=== PATIENT | female | born 2000 | race Caucasian/White ===

== ENCOUNTER 2018-12-15 04:15 | Inpatient (IN) | payer OTHER ==
[~2018-12-15] VITALS: Ht 157.5 cm; Wt 57.0 kg
[2018-12-15] MEDS ORDERED: SOD CHLORIDE 0.9% 500 ML IV STA (05:00)
--- NOTE | 2018-12-15 05:47 | ERD ---
ER Documentation Chief Complaint Chief Complaint 'seizure' as per SO @0300,refused RA,on Methadone tx for heroine HPI This is a 18-year-old female with a seizure in bed and her significant other. She had 30 seconds of tonic. No tongue biting no incontinence. Patient has apparently been binging on benzodiazepines in the form of 2 mg Xanax bars 5/day over the past month. She did not take any today. She feels a little tremulous. She denies any other current issues. ROS All systems reviewed and are negative except as per history of present illness. Allergies Allergies: Coded Allergies: No Known Allergy (Unverified , 12/15/18) PMhx/Soc Medical and Surgical Hx: pt denies Surgical Hx History of Surgery: No Anesthesia Reaction: No Hx Neurological Disorder: No Hx Respiratory Disorders: No Hx Cardiac Disorders: No Hx Psychiatric Problems: Yes (SUBSTANCE ABUSE) Hx Miscellaneous Medical Probl: No Hx Alcohol Use: No Hx Substance Use: Yes (HEROIN, XANAX, OXYCONTIN) Hx Tobacco Use: Yes Smoking Status: Current every day smoker Physical Exam Vitals Vital Signs Date Temp Pulse Resp B/P (MAP) Pulse Ox O2 O2 Flow FiO2 Time Delivery Rate 12/15/18 98.8 73 12 96/65 (75) 98 Room Air 04:50 12/15/18 98.7 74 20 99/52 (68) 99 04:22 Physical Exam Const: No acute distress Head: Atraumatic Eyes: Normal Conjunctiva ENT: Normal External Ears, Nose and Mouth. Neck: Full range of motion. No meningismus. Resp: Clear to auscultation bilaterally Cardio: Regular rate and rhythm, no murmurs Abd: Soft, non tender, non distended. Normal bowel sounds Skin: No petechiae or rashes Back: No midline or flank tenderness Ext: No cyanosis, or edema Neur: Awake and alert Psych: Normal Mood and Affect Result Diagram: 12/15/18 0526 Results 24 hrs Laboratory Tests Test 12/15/18 05:26 12/15/18 05:38 White Blood Count 8.1 10^3/ul Red Blood Count 5.11 10^6/ul Hemoglobin 14.8 g/dl Hematocrit 45.9 % Mean Corpuscular Volume 89.8 fl Mean Corpuscular Hemoglobin 29.0 pg Mean Corpuscular Hemoglobin Concent 32.2 g/dl Red Cell Distribution Width 12.8 % Platelet Count 265 10^3/UL Mean Platelet Volume 9.9 fl Immature Granulocytes % 0.200 % Neutrophils % 65.8 % Lymphocytes % 26.9 % Monocytes % 5.6 % Eosinophils % 1.0 % Basophils % 0.5 % Nucleated Red Blood Cells % 0.0 /100WBC Immature Granulocytes # 0.020 10^3/ul Neutrophils # 5.3 10^3/ul Lymphocytes # 2.2 10^3/ul Monocytes # 0.5 10^3/ul Eosinophils # 0.1 10^3/ul Basophils # 0.0 10^3/ul Nucleated Red Blood Cells # 0.0 10^3/ul POC Beta HCG, Qualitative NEGATIVE Current Medications Medications Dose Sig/[place] Start Time Status Last (Trade) Ordered Route PRN Stop Time Admin Dose Reason Admin Sodium 500 ml @ Q1H STAT 12/15/18 12/15/18 Chloride 500 mls/hr IV 05:00 05:37 12/15/18 05:59 Procedures/MDM EKG: Rate/Rhythm: [Normal Sinus Rhythm] QRS, ST, T-waves: [No changes consistent w/ acute ischemia] Impression: [No evidence of ischemia or arrhythmia] Medical decision making: Is a 18-year-old female new onset seizure disorder likely secondary to benzodiazepine withdrawal. Patient will be admitted to hospitalist to telemetric setting for further evaluation and management Departure Diagnosis: Primary Impression: Seizure disorder Condition: Serious JOHNNY ROWLAND Dec 15, 2018 05:47
[2018-12-15] MEDS ORDERED: METH10TA2 PO (08:19)
[2018-12-15] MEDS ORDERED: ACETAMINOPHEN 325 MG TAB PO PRN (08:30)
[2018-12-15] MEDS ORDERED: ONDANSETRON 4 MG INJ IV PRN (08:30)
[2018-12-15] MEDS ORDERED: NACL 0.9% 3 ML SYG IV SCH (08:30)
[2018-12-15] MEDS ORDERED: LORAZEPAM 2 MG INJ IV PRN ×2 (08:30)
[2018-12-15] MEDS ORDERED: ALBUTEROL/IPRATROPIUM (NEB) 3 ML AMP HHN PRN (08:30)
--- NOTE | 2018-12-15 09:09 | HP ---
Date/Time of Note Date/Time of Note DATE: 12/15/18 TIME: 09:02 Assessment/Plan VTE Prophylaxis SCD applied (from Nsg): Yes Pharmacological prophylaxis: NA/contraindicated Pharm contraindication: low risk/ambulating Lines/Catheters IV Catheter Type (from Nrsg): Peripheral IV Assessment/Plan Assessment/Plan 18-year-old female with history of heroin X 2 years, currently on methadone and also taking Xanax for anxiety presents after having a tonic-clonic type of seizure lasting 2 minutes. Seizure most likely related to medication induced (methadone and Xanax) VS withdrawal PLAN Admit to telemetry unit Will image her brain As needed Ativan for seizure for now EEG Consider neurology consult Also consider in-house pain specialist. Result Diagram: 12/15/1852512/15/18525 Results 24hrs Laboratory Tests Test 12/15/18 05:26 12/15/18 05:38 White Blood Count 8.1 Red Blood Count 5.11 Hemoglobin 14.8 Hematocrit 45.9 Mean Corpuscular Volume 89.8 Mean Corpuscular Hemoglobin 29.0 Mean Corpuscular Hemoglobin Concent 32.2 Red Cell Distribution Width 12.8 Platelet Count 265 Mean Platelet Volume 9.9 Immature Granulocytes % 0.200 Neutrophils % 65.8 Lymphocytes % 26.9 Monocytes % 5.6 Eosinophils % 1.0 Basophils % 0.5 Nucleated Red Blood Cells % 0.0 Immature Granulocytes # 0.020 Neutrophils # 5.3 Lymphocytes # 2.2 Monocytes # 0.5 Eosinophils # 0.1 Basophils # 0.0 Nucleated Red Blood Cells # 0.0 Urine Color YELLOW Urine Clarity CLOUDY A Urine pH 6.0 Urine Specific [place] 1.017 Urine Ketones NEGATIVE Urine Nitrite NEGATIVE Urine Bilirubin NEGATIVE Urine Urobilinogen NEGATIVE Urine Leukocyte Esterase TRACE A Urine Microscopic RBC 2 Urine Microscopic WBC 28 H Urine Squamous Epithelial Cells MODERATE Urine Bacteria FEW A Urine Mucus FEW A Urine Hemoglobin NEGATIVE Urine Glucose NEGATIVE Urine Total Protein NEGATIVE Sodium Level 142 Potassium Level 4.1 Chloride Level 103 Carbon Dioxide Level 32 H Anion Gap 7 Blood Urea Nitrogen 9 Creatinine 0.68 Est Glomerular Filtrat Rate mL/min > 60 Glucose Level 102 Calcium Level 9.8 Troponin I < 0.012 Urine Opiates Screen Negative Urine Barbiturates Negative Urine Amphetamines Screen Negative Urine Benzodiazepines Screen Negative Urine Cocaine Screen Negative Urine Cannabinoids Positive Ethyl Alcohol Level < 10.0 H POC Beta HCG, Qualitative NEGATIVE HPI/ROS Admit Date/Time Admit Date/Time Hx of Present Illness This is a 18-year-old female with history of heroin abuse X 2 years, now on methadone presents the ER after having had a seizure. Patient is accompanied by her boyfriend who also provided history. Boyfriend stated that, patient all of a sudden started rolling her eyes. Initially her body was somehow rigid, but later was having tonic-clonic type of seizure. It lasted about 2 minutes. After the seizure stopped, patient was confused even when EMS arrived. Denied a history of seizure. Patient has been on methadone for about a month. She has also been taking Xanax multiple times a day to help her with anxiety. She also smokes marijuana. Patient thinks that the combination of methadone and the Xanax was responsible for her seizure. PMH/Family/Social Past Medical History Medical History: other (See HPI) Medications Current Medications IV Flush (NS 3 ml) 3 ml PER PROTOCOL IV ; Start 12/15/18 at 08:30 Lorazepam (Ativan) 1 mg Q6H PRN IV .ANXIETY; Start 12/15/18 at 08:30 Ondansetron HCl (Zofran Inj) 4 mg Q6H PRN IV NAUSEA/VOMITING; Start 12/15/18 at 08:30 Acetaminophen (Tylenol Tab) 650 mg Q6H PRN PO .PAIN 1-3 OR TEMP; Start 12/15/18 at 08:30 Albuterol/ Ipratropium (Duoneb) 3 ml Q2H RESP THERAPY PRN HHN SHORTNESS OF BREATH; Start 12/15/18 at 08:30 Lorazepam (Ativan) 2 mg Q10M PRN IV SEIZURE; Start 12/15/18 at 08:30 Coded Allergies: No Known Allergy (Unverified , 12/15/18) Past Surgical History Past Surgical Hx: other (See HPI) Family History Significant Family History: no pertinent family hx Social History Alcohol Use: none Smoking Status: Current every day smoker Drug Use: none Exam/Review of Systems Vital Signs Vitals Vital Signs Date Temp Pulse Resp B/P (MAP) Pulse Ox O2 O2 Flow FiO2 Time Delivery Rate 12/15/18 72 14 99/59 (72) 98 Room Air 07:59 12/15/18 98.8 04:50 Exam Constitutional: alert, oriented, well developed Head: normocephalic, atraumatic Eyes: EOMI, PERRL Respiratory: clear to auscultation, normal air movement Cardiovascular: regular rate and rhythm, nl pulses Gastrointestinal: soft, non-tender Extremities: normal pulses JOHNNY GLEASON MD Dec 15, 2018 09:09
[2018-12-15] MEDS ORDERED: IOHEXOL 300MG/ML 150 ML BTL ONE (11:16)
[2018-12-15] MEDS ORDERED: SOD CHLORIDE 0.9% 100 ML ONE (11:16)
--- NOTE | 2018-12-15 12:39 | CONS ---
Assessment/Plan Assessment/Plan Hospital Course A: 18 yo with hx of heroin and xanax abuse who presents for evaluation for seizures, her reported first of life... for which neurology is consulted. The clinical picture raises concern for benzodiazepine withdrawal. Epilepsy is additionally considered. HCT is unremarkable. P: Await MRI brain with and without contrast for further characterization Await EEG Add Mg, Phos AED theraqpy not presently indicated Ativan IV PRN prolonged seizure > 5 min Will follow clinically Consultation Date/Type/Reason Admit Date/Time Type of Consult Neurology Reason for Consultation seizures Requesting Provider: ALEXA TORRE NP Date/Time of Note DATE: 12/15/18 TIME: 12:38 Hx of Present Illness 18 yo F with hx of heroin and xanax abuse who presented to the ED for evaluation of seizures. History was obtained from pt, who is a limited historian, and chart review. The pt states that her last xanax use was 2 days ago. It is additionally elsewhere noted: Hx of Present Illness This is a 18-year-old female with history of heroin abuse X 2 years, now on methadone presents the ER after having had a seizure. Patient is accompanied by her boyfriend who also provided history. Boyfriend stated that, patient all of a sudden started rolling her eyes. Initially her body was somehow rigid, but later was having tonic-clonic type of seizure. It lasted about 2 minutes. After the seizure stopped, patient was confused even when EMS arrived. Denied a history of seizure. Patient has been on methadone for about a month. She has also been taking Xanax multiple times a day to help her with anxiety. She also smokes marijuana. Patient thinks that the combination of methadone and the Xanax was responsible for her seizure. negative unless noted otherwise in HPI Exam/Review of Systems Exam Vitals Vital Signs Date Temp Pulse Resp B/P (MAP) Pulse Ox O2 O2 Flow FiO2 Time Delivery Rate 12/15/18 98.3 81 16 124/66 98 Room Air 11:44 (85) Exam PE: Gen Appearance: No Apparent Distress HEENT: Normocephalic Cardiovascular: Regular rate Lungs: Clear bilaterally Abdomen: Soft Extremities: Dry NE: The patient was alert and oriented.. Language was normal. Fund of knowledge was normal. Pupils were equal and reactive to light. There was no afferent pupillary defect. Visual valdez were normal. Funduscopic examination was limited. Extra-ocular movements were full. Ptosis was absent. There was no nystagmus. Facial sensation was normal. Face was symmetric with normal strength. Hearing was intact. Palate movements were normal. Neck strength was normal. There was normal tongue bulk and speed of movement. Tone was normal. Muscle bulk was normal. I did not see fasciculations or hand tremors. Arms and legs were strong. Vibration sensation was normal. Temperature and pinprick sensation was normal. Rapid alternating movements were normal. There was no dysmetria. There was no intention tremor. Gait was deferred due to bedrest. Arm and leg reflexes were 2+ and symmetric. Miller's sign was absent. Plantar responses were flexor. Results Result Diagram: 12/15/18 0512/15/18 0526 Results 24hrs Laboratory Tests Test 12/15/18 05:26 12/15/18 05:38 White Blood Count 8.1 Red Blood Count 5.11 Hemoglobin 14.8 Hematocrit 45.9 Mean Corpuscular Volume 89.8 Mean Corpuscular Hemoglobin 29.0 Mean Corpuscular Hemoglobin Concent 32.2 Red Cell Distribution Width 12.8 Platelet Count 265 Mean Platelet Volume 9.9 Immature Granulocytes % 0.200 Neutrophils % 65.8 Lymphocytes % 26.9 Monocytes % 5.6 Eosinophils % 1.0 Basophils % 0.5 Nucleated Red Blood Cells % 0.0 Immature Granulocytes # 0.020 Neutrophils # 5.3 Lymphocytes # 2.2 Monocytes # 0.5 Eosinophils # 0.1 Basophils # 0.0 Nucleated Red Blood Cells # 0.0 Urine Color YELLOW Urine Clarity CLOUDY A Urine pH 6.0 Urine Specific [place] 1.017 Urine Ketones NEGATIVE Urine Nitrite NEGATIVE Urine Bilirubin NEGATIVE Urine Urobilinogen NEGATIVE Urine Leukocyte Esterase TRACE A Urine Microscopic RBC 2 Urine Microscopic WBC 28 H Urine Squamous Epithelial Cells MODERATE Urine Bacteria FEW A Urine Mucus FEW A Urine Hemoglobin NEGATIVE Urine Glucose NEGATIVE Urine Total Protein NEGATIVE Sodium Level 142 Potassium Level 4.1 Chloride Level 103 Carbon Dioxide Level 32 H Anion Gap 7 Blood Urea Nitrogen 9 Creatinine 0.68 Est Glomerular Filtrat Rate mL/min > 60 Glucose Level 102 Calcium Level 9.8 Troponin I < 0.012 Urine Opiates Screen Negative Urine Barbiturates Negative Urine Amphetamines Screen Negative Urine Benzodiazepines Screen Negative Urine Cocaine Screen Negative Urine Cannabinoids Positive Ethyl Alcohol Level < 10.0 H POC Beta HCG, Qualitative NEGATIVE Imaging Imaging CTH reviewed: IMPRESSION: 1. Normal CT scan of the brain without and with contrast. Medications Medication Current Medications IV Flush (NS 3 ml) 3 ml PER PROTOCOL IV ; Start 12/15/18 at 08:30 Lorazepam (Ativan) 1 mg Q6H PRN IV .ANXIETY; Start 12/15/18 at 08:30 Ondansetron HCl (Zofran Inj) 4 mg Q6H PRN IV NAUSEA/VOMITING; Start 12/15/18 at 08:30 Acetaminophen (Tylenol Tab) 650 mg Q6H PRN PO .PAIN 1-3 OR TEMP; Start 12/15/18 at 08:30 Albuterol/ Ipratropium (Duoneb) 3 ml Q2H RESP THERAPY PRN HHN SHORTNESS OF BREATH; Start 12/15/18 at 08:30 Lorazepam (Ativan) 2 mg Q10M PRN IV SEIZURE; Start 12/15/18 at 08:30 Past Medical History reviewed Medical History: other (See HPI) Home Meds Reported Medications Methadone Hcl* (Methadone*) 10 Mg Tab, 20 MG PO DAILY, TAB 12/15/18 Medications Current Medications IV Flush (NS 3 ml) 3 ml PER PROTOCOL IV ; Start 12/15/18 at 08:30 Lorazepam (Ativan) 1 mg Q6H PRN IV .ANXIETY; Start 12/15/18 at 08:30 Ondansetron HCl (Zofran Inj) 4 mg Q6H PRN IV NAUSEA/VOMITING; Start 12/15/18 at 08:30 Acetaminophen (Tylenol Tab) 650 mg Q6H PRN PO .PAIN 1-3 OR TEMP; Start 12/15/18 at 08:30 Albuterol/ Ipratropium (Duoneb) 3 ml Q2H RESP THERAPY PRN HHN SHORTNESS OF BREATH; Start 12/15/18 at 08:30 Lorazepam (Ativan) 2 mg Q10M PRN IV SEIZURE; Start 12/15/18 at 08:30 Allergies: Coded Allergies: No Known Allergy (Unverified , 12/15/18) Past Surgical History reviewed Past Surgical Hx: other (See HPI) Social History reviewed Alcohol Use: none Smoking Status: Current every day smoker Drug Use: none ROBERT HASSAN NP Dec 15, 2018 12:39
--- NOTE | 2018-12-15 13:39 | QN ---
Documentation Comment 18-year-old female with IV heroin abuse, started on methadone treatment 3 weeks ago, takes high-dose Xanax, smokes marijuana, presented with tonic-clonic type of seizure lasting [address] negative. No further seizure activities. At this time, I recommend obtaining an official neurology consultation, follow-up MRI/EEG studies ordered. I will also check with methadone clinic for appropriate methadone dosing. Case discussed with Dr. Ronquillo. ALEXA TORRE NP Dec 15, 2018 13:39
[2018-12-15 14:55] VITALS: BP 97/55; PULSE 60; RESP 18
[2018-12-15 15:11] VITALS: Ht 157.5 cm; Wt 57.0 kg
[2018-12-15] MEDS: METHADONE 10 MG TAB PO SCH (15:27)
[2018-12-15 16:13] VITALS: PULSE 58
[2018-12-15 20:00] VITALS: BP 84/48; PULSE 63; PULSE 70; RESP 18
--- NOTE | 2018-12-15 20:44 | CONS ---
Consultation Date/Type/Reason Admit Date/Time Date/Time of Note DATE: 12/15/18 TIME: 20:44 Past Medical History Medical History: other (See HPI) Home Meds Reported Medications Methadone Hcl* (Methadone*) 10 Mg Tab, 20 MG PO DAILY, TAB 12/15/18 Medications Current Medications IV Flush (NS 3 ml) 3 ml PER PROTOCOL IV ; Start 12/15/18 at 08:30 Lorazepam (Ativan) 1 mg Q6H PRN IV .ANXIETY; Start 12/15/18 at 08:30 Ondansetron HCl (Zofran Inj) 4 mg Q6H PRN IV NAUSEA/VOMITING; Start 12/15/18 at 08:30 Acetaminophen (Tylenol Tab) 650 mg Q6H PRN PO .PAIN 1-3 OR TEMP; Start 12/15/18 at 08:30 Albuterol/ Ipratropium (Duoneb) 3 ml Q2H RESP THERAPY PRN HHN SHORTNESS OF BREATH; Start 12/15/18 at 08:30 Lorazepam (Ativan) 2 mg Q10M PRN IV SEIZURE; Start 12/15/18 at 08:30 Methadone HCl (Methadone) 20 mg DAILY PO Last administered on 12/15/18at 15:27; Admin Dose 20 MG; Start 12/15/18 at 15:00 Allergies: Coded Allergies: No Known Allergy (Unverified , 12/15/18) Past Surgical History Past Surgical Hx: other (See HPI) Social History Alcohol Use: none Smoking Status: Current some day smoker Drug Use: none Exam/Review of Systems Exam Vitals Vital Signs Date Temp Pulse Resp B/P (MAP) Pulse Ox O2 O2 Flow FiO2 Time Delivery Rate 12/15/18 98.3 63 18 84/48 (60) 100 20:00 12/15/18 Room Air 14:55 Results Result Diagram: 12/15/18 0512/15/18 0526 Results 24hrs Laboratory Tests Test 12/15/18 05:26 12/15/18 05:38 White Blood Count 8.1 Red Blood Count 5.11 Hemoglobin 14.8 Hematocrit 45.9 Mean Corpuscular Volume 89.8 Mean Corpuscular Hemoglobin 29.0 Mean Corpuscular Hemoglobin Concent 32.2 Red Cell Distribution Width 12.8 Platelet Count 265 Mean Platelet Volume 9.9 Immature Granulocytes % 0.200 Neutrophils % 65.8 Lymphocytes % 26.9 Monocytes % 5.6 Eosinophils % 1.0 Basophils % 0.5 Nucleated Red Blood Cells % 0.0 Immature Granulocytes # 0.020 Neutrophils # 5.3 Lymphocytes # 2.2 Monocytes # 0.5 Eosinophils # 0.1 Basophils # 0.0 Nucleated Red Blood Cells # 0.0 Urine Color YELLOW Urine Clarity CLOUDY A Urine pH 6.0 Urine Specific [place] 1.017 Urine Ketones NEGATIVE Urine Nitrite NEGATIVE Urine Bilirubin NEGATIVE Urine Urobilinogen NEGATIVE Urine Leukocyte Esterase TRACE A Urine Microscopic RBC 2 Urine Microscopic WBC 28 H Urine Squamous Epithelial Cells MODERATE Urine Bacteria FEW A Urine Mucus FEW A Urine Hemoglobin NEGATIVE Urine Glucose NEGATIVE Urine Total Protein NEGATIVE Sodium Level 142 Potassium Level 4.1 Chloride Level 103 Carbon Dioxide Level 32 H Anion Gap 7 Blood Urea Nitrogen 9 Creatinine 0.68 Est Glomerular Filtrat Rate mL/min > 60 Glucose Level 102 Calcium Level 9.8 Troponin I < 0.012 Urine Opiates Screen Negative Urine Barbiturates Negative Urine Amphetamines Screen Negative Urine Benzodiazepines Screen Negative Urine Cocaine Screen Negative Urine Cannabinoids Positive Ethyl Alcohol Level < 10.0 H POC Beta HCG, Qualitative NEGATIVE Medications Medication Current Medications IV Flush (NS 3 ml) 3 ml PER PROTOCOL IV ; Start 12/15/18 at 08:30 Lorazepam (Ativan) 1 mg Q6H PRN IV .ANXIETY; Start 12/15/18 at 08:30 Ondansetron HCl (Zofran Inj) 4 mg Q6H PRN IV NAUSEA/VOMITING; Start 12/15/18 at 08:30 Acetaminophen (Tylenol Tab) 650 mg Q6H PRN PO .PAIN 1-3 OR TEMP; Start 12/15/18 at 08:30 Albuterol/ Ipratropium (Duoneb) 3 ml Q2H RESP THERAPY PRN HHN SHORTNESS OF BREATH; Start 12/15/18 at 08:30 Lorazepam (Ativan) 2 mg Q10M PRN IV SEIZURE; Start 12/15/18 at 08:30 Methadone HCl (Methadone) 20 mg DAILY PO Last administered on 12/15/18at 15:27; Admin Dose 20 MG; Start 12/15/18 at 15:00 JUNE PASCUAL Dec 15, 2018 20:44
[2018-12-15 23:30] VITALS: BP 90/59; PULSE 69; RESP 20
[2018-12-16] VITALS (10 sets, daily range): BP systolic 85–99; BP diastolic 40–53; PULSE 55–93; RESP 17–20
--- NOTE | 2018-12-16 06:32 | CONS ---
Assessment/Plan Assessment/Plan Assessment/Plan (Daily) Multidrug overdose with seizure withdrawal seizure activity probably secondary to excessive use of benzodiazepines. Patient admits she is taking up to 50 mg of Xanax daily. This time she used any Xanax was approximately 2 days prior to this admission. Heroin use last time used approximately 2 weeks ago Actively smoke Actively drinks Actively smokes marijuana Noncompliant with outpatient treatment program When patient is stable for discharge strongly recommend not to prescribe any opioids including methadone at the time this patient is discharged but recommend that she was directly from hospital to her treatment program. Consultation Date/Type/Reason Admit Date/Time Date/Time of Note DATE: 12/16/18 TIME: 06:27 Hx of Present Illness Patient is a 18-year-old female who was admitted to [facility] with seizures. Patient is on the medical floor at this time there is been no new seizure activity she is on seizure precautions. She has been smoking heroin and has been into treatment programs the last treatment program ended and she is in recovery at this time however she is somewhat unclear as the last time she used heroin, she thinks it was within the last 2 weeks. Patient also smokes drinks and uses marijuana, actively. She takes no other medications at home she frankly denies use crystal methamphetamine spice or ecstasy. She has no other serious major medical problem. Patient is not negotiating for opioids at this time she states she is not feeling tremulous tachycardic or tachypnea no diaphoretic. She was admitted started off in 20 mg of methadone seems to be doing reasonably well with that, this is her baseline dose which was checked by the primary hospitalist when patient was admitted when she call the outpatient treatment program. Patient is anxious to leave the hospital. Constitutional: no complaints, improved Eyes: no complaints ENT: no complaints Respiratory: no complaints Cardiovascular: no complaints Gastrointestinal: no complaints Genitourinary: no complaints Musculoskeletal: no complaints Skin: no complaints Neurologic: no complaints Endocrine: no complaints Lymphatic: no complaints Psychological: no complaints, nl mood/affect Immunologic: no complaints Past Medical History Medical History: other (See HPI) Home Meds Reported Medications Methadone Hcl* (Methadone*) 10 Mg Tab, 20 MG PO DAILY, TAB 12/15/18 Medications Current Medications IV Flush (NS 3 ml) 3 ml PER PROTOCOL IV ; Start 12/15/18 at 08:30 Lorazepam (Ativan) 1 mg Q6H PRN IV .ANXIETY; Start 12/15/18 at 08:30 Ondansetron HCl (Zofran Inj) 4 mg Q6H PRN IV NAUSEA/VOMITING; Start 12/15/18 at 08:30 Acetaminophen (Tylenol Tab) 650 mg Q6H PRN PO .PAIN 1-3 OR TEMP; Start 12/15/18 at 08:30 Albuterol/ Ipratropium (Duoneb) 3 ml Q2H RESP THERAPY PRN HHN SHORTNESS OF BREATH; Start 12/15/18 at 08:30 Lorazepam (Ativan) 2 mg Q10M PRN IV SEIZURE; Start 12/15/18 at 08:30 Methadone HCl (Methadone) 20 mg DAILY PO Last administered on 12/15/18at 15:27; Admin Dose 20 MG; Start 12/15/18 at 15:00 Allergies: Coded Allergies: No Known Allergy (Unverified , 12/15/18) Past Surgical History Past Surgical Hx: other (See HPI) Social History Alcohol Use: occasionally Smoking Status: Current some day smoker Drug Use: none, heroin, marijuana Exam/Review of Systems Exam Vitals Vital Signs Date Temp Pulse Resp B/P (MAP) Pulse Ox O2 O2 Flow FiO2 Time Delivery Rate 12/16/18 65 04:00 12/16/18 98.0 20 93/48 (63) 96 04:00 12/15/18 Room Air 23:30 Intake and Output 12/15/18 12/15/18 12/16/18 1515:00 23:00 07:00 IntakeIntake Total 400 ml BalanceBalance 400 ml Constitutional: alert, oriented, well developed Psych: no complaints, anxiety Head: normocephalic, atraumatic; No lacerations, No hematomas, No other Eyes: nl conjunctiva, EOMI, nl lids, nl sclera, PERRL; No icteric, No fundi, disc, No other ENMT: nl external ears & nose, nl lips & teeth, nl nasal mucosa & septum; No mucosa pink and moist, No intubated, No tympanic membranes, No other Neck: supple, non-tender; No jvd, No bruits, No masses, No thyromegaly, No nuchal rigidity, No other Respiratory: clear to auscultation, normal air movement; No congested cough, No crackles/rales, No diminished breath sounds, No intercostal retraction, No labored breathing, No respirations, No tactile fremitus, No wheezing, No other Cardiovascular: regular rate and rhythm, nl pulses; No bruits, No diastolic murmur, No edema, No gallop, No irregular rhythm, No jugular venous distention (JVD), No murmurs/extra sounds, No rub, No systolic murmur, No S3, No S4, No other Gastrointestinal: soft, nl liver, spleen, non-tender; No ascites, No bowel sounds, No distended, No firm, No hepatomegaly, No mass, No rebound or guarding, No splenomegaly, No surgical scars, No tender, No other Neurological: [employer] II-XII intact, nl mental status, nl speech, nl strength; No confused, No DTR's symmetric, No focal weakness, No lethargic, No numbness, No reflexes, No unresponsive, No other Results Result Diagram: 12/16/18 0548 12/15/18 0526 Results 24hrs Laboratory Tests Test 12/16/18 05:48 White Blood Count 7.6 Red Blood Count 4.46 Hemoglobin 12.9 Hematocrit 40.1 Mean Corpuscular Volume 89.9 Mean Corpuscular Hemoglobin 28.9 L Mean Corpuscular Hemoglobin Concent 32.2 Red Cell Distribution Width 12.7 Platelet Count 212 Mean Platelet Volume 10.3 Immature Granulocytes % 0.300 Neutrophils % 44.2 Lymphocytes % 47.5 Monocytes % 5.8 Eosinophils % 1.7 Basophils % 0.5 Nucleated Red Blood Cells % 0.0 Immature Granulocytes # 0.020 Neutrophils # 3.3 Lymphocytes # 3.6 H Monocytes # 0.4 Eosinophils # 0.1 Basophils # 0.0 Nucleated Red Blood Cells # 0.0 Medications Medication Current Medications IV Flush (NS 3 ml) 3 ml PER PROTOCOL IV ; Start 12/15/18 at 08:30 Lorazepam (Ativan) 1 mg Q6H PRN IV .ANXIETY; Start 12/15/18 at 08:30 Ondansetron HCl (Zofran Inj) 4 mg Q6H PRN IV NAUSEA/VOMITING; Start 12/15/18 at 08:30 Acetaminophen (Tylenol Tab) 650 mg Q6H PRN PO .PAIN 1-3 OR TEMP; Start 12/15/18 at 08:30 Albuterol/ Ipratropium (Duoneb) 3 ml Q2H RESP THERAPY PRN HHN SHORTNESS OF BREATH; Start 12/15/18 at 08:30 Lorazepam (Ativan) 2 mg Q10M PRN IV SEIZURE; Start 12/15/18 at 08:30 Methadone HCl (Methadone) 20 mg DAILY PO Last administered on 12/15/18at 15:27; Admin Dose 20 MG; Start 12/15/18 at 15:00 JUNE PASCUAL Dec 16, 2018 06:32
--- NOTE | 2018-12-16 07:21 | EEG ---
EEG NOTE Report Details DATE OF TEST: 12/15/18 HISTORY: The patient is a 18-year-old F who presents following a witnessed seizure, her reported first of life.. This EEG is requested to evaluate for an epileptic disorder. to rule out nonconvulsive status epilepticus. SEDATION: None. CONDITIONS OF RECORDING: This EEG was recorded digitally on the [email or web address] machine, using the International 10-20 System of electrodes plus anterior temporals and [place]z. STATES SAMPLED: Wakefulness and drowsiness. FINDINGS: During wakefulness, there is a 9 Hz posterior dominant rhythm, which attenuates normally with eye opening. There is a normal [id number] frequency-amplitude gradient. The remainder of the awake background is normal. Photic stimulation elicits does not elicit any definite driving responses or epileptiform discharges. Hyperventilation, performed with good effort, produces a negligible change in the background. The patient became drowsy but did not pass into sleep. No asymmetries, focal abnormalities or epileptiform discharges were seen. Incidentally, the single-channel quality assurance monitor did not reveal any obvious cardiac arrhythmia. IMPRESSION: Normal electroencephalogram during wakefulness and drowsiness. COMMENT: A normal EEG does not of itself rule out an epileptic disorder, especially if sleep is not captured, but may decrease the probability of one depending on clinical context. GINI BROOKS Dec 16, 2018 07:21
[2018-12-16] MEDS: METHADONE 10 MG TAB PO SCH (10:06)
--- NOTE | 2018-12-16 11:38 | PDOCDIS ---
Discharge Instructions CONDITION [id number] Patient Condition: [id number] Stable HOME CARE INSTRUCTIONS: [id number] Diet Instructions: [id number] Regular FOLLOW UP/APPOINTMENTS Follow-up Plan Follow-up with primary care physician in 1 week. ALEXA TORRE NP Dec 16, 2018 11:38
--- NOTE | 2018-12-16 11:46 | DS ---
Date/Time of Note Date/Time of Note DATE: 12/16/18 TIME: 11:44 Discharge Summary Admission/Discharge Info Admit Date/Time Dec 15, 2018 at 05:40 Discharge Date/Time Discharge Diagnosis 1. Seizures, likely benzo withdrawal. Stable. 2. IV heroin abuse, on methadone treatment. 3. Anxiety disorders Patient Condition: Stable Consults Dr. Aparicio, pain management Dr. Andrade, neurologist Procedures 12/15/2018. Chest x-ray. No acute cardiopulmonary disease. 12/15/2018. CT brain with and without contrast. Normal CT scan of the brain without and with contrast. 12/15/2018. EEG. IMPRESSION: Normal electroencephalogram during wakefulness and drowsiness. Hospital Course 18-year-old female with IV heroin abuse, started on methadone treatment 3 weeks ago, took 50 mg Xanaxx 5 days and then stopped for 3 days, smokes marijuana, presented with tonic-clonic type of seizure lasting 2 minutes. Methadone dose was clarified with her clinic and was continued on appropriate dosing. Patient's EEG was unremarkable. CT brain was unremarkable. Case reviewed by neurologist. Patient did not have any further seizures. Her neuro status remained stable. She did not require any anxiety medications. At this time, we will discharge patient back home with outpatient PCP follow-up once MRI is negative for any acute intracranial events.. 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 Approximately 60 minutes was spent on Coordinating the discharge on this patient. Patient was seen in collaboration w/ Dr. Ronquillo. Home Meds Reported Medications Methadone Hcl* (Methadone*) 10 Mg Tab, 20 MG PO DAILY, TAB 12/15/18 Follow-up Plan Follow-up with primary care physician in 1 week. Primary Care Provider Care Physician No Primary Pending Labs Laboratory Tests Test 12/16/18 05:48 White Blood Count 7.6 10^3/ul (4.8-10.8) Red Blood Count 4.46 10^6/ul (4.20-5.40) Hemoglobin 12.9 g/dl (12.0-16.0) Hematocrit 40.1 % (37.0-47.0) Mean Corpuscular Volume 89.9 fl (72.0-104.0) Mean Corpuscular Hemoglobin 28.9 pg (29.0-33.0) Mean Corpuscular Hemoglobin Concent 32.2 g/dl (32.0-37.0) Red Cell Distribution Width 12.7 % (11.5-14.5) Platelet Count 212 10^3/UL (140-415) Mean Platelet Volume 10.3 fl (7.4-10.4) Immature Granulocytes % 0.300 % (0.001-0.429) Neutrophils % 44.2 % (30.0-74.0) Lymphocytes % 47.5 % (18.0-55.0) Monocytes % 5.8 % (0.0-13.0) Eosinophils % 1.7 % (0.0-7.0) Basophils % 0.5 % (0.0-2.0) Nucleated Red Blood Cells % 0.0 /100WBC (0.0-0.0) Immature Granulocytes # 0.020 10^3/ul (0.0-0.031) Neutrophils # 3.3 10^3/ul (1.6-7.5) Lymphocytes # 3.6 10^3/ul (0.8-2.9) Monocytes # 0.4 10^3/ul (0.3-0.9) Eosinophils # 0.1 10^3/ul (0.0-0.5) Basophils # 0.0 10^3/ul (0.0-0.1) Nucleated Red Blood Cells # 0.0 10^3/ul (0.0-0.0) Sodium Level 138 mmol/L (135-144) Potassium Level 4.1 mmol/L (3.5-5.1) Chloride Level 103 mmol/L (97-110) Carbon Dioxide Level 28 mmol/L (21-31) Anion Gap 7 (5-13) Blood Urea Nitrogen 7 mg/dl (7-20) Creatinine 0.50 mg/dl (0.44-1.00) Est Glomerular Filtrat Rate mL/min > 60 mL/min (>60) Glucose Level 92 mg/dl (70-220) Calcium Level 8.9 mg/dl (8.4-10.2) Phosphorus Level 4.1 mg/dl (2.5-4.9) Magnesium Level 2.0 mg/dl (1.7-2.5) Total Bilirubin 0.4 mg/dl (0.2-1.3) Direct Bilirubin 0.00 mg/dl (0.00-0.20) Indirect Bilirubin 0.4 mg/dl (0-1.1) Aspartate Amino Transf (AST/SGOT) 17 IU/L (15-46) Alanine Aminotransferase (ALT/SGPT) 22 IU/L (13-69) Alkaline Phosphatase 44 IU/L (42-121) Total Protein 6.3 g/dl (6.1-8.1) Albumin 3.6 g/dl (3.3-4.9) Globulin 2.70 g/dl (1.3-3.2) Albumin/Globulin Ratio 1.33 Thyroid Stimulating Hormone (TSH) 0.269 MIU/L (0.465-4.680) ALEXA TORRE NP Dec 16, 2018 11:46
--- NOTE | 2018-12-16 14:04 | CONS ---
Assessment/Plan Assessment/Plan Hospital Course A: 18 yo with hx of heroin and xanax abuse who presents for evaluation for seizures, her reported first of life... for which neurology is consulted. The clinical picture raises concern for benzodiazepine withdrawal. Epilepsy is less likely. HCT is unremarkable. EEG is unremarkable. P: Await MRI brain with and without contrast for further characterization AED therapy not presently indicated Ativan IV PRN prolonged seizure > 5 min Will follow clinically Consultation Date/Type/Reason Admit Date/Time Dec 15, 2018 at 05:40 Type of Consult Neurology Reason for Consultation seizures Requesting Provider: ALEXA TORRE NP Date/Time of Note DATE: 12/16/18 TIME: 14:04 24 HR Interval Summary Free Text/Dictation Continues acute care. No further seizure episodes reported. Awaiting MRI results. Exam Vital Signs Vitals Vital Signs Date Temp Pulse Resp B/P (MAP) Pulse Ox O2 O2 Flow FiO2 Time Delivery Rate 12/16/18 78 12:13 12/16/18 98.1 18 99/53 (68) 96 Room Air 11:21 Intake and Output 12/15/18 12/15/18 12/16/18 1515:00 23:00 07:00 IntakeIntake Total 400 ml 300 ml BalanceBalance 400 ml 300 ml Exam PE: Gen Appearance: No Apparent Distress HEENT: Normocephalic Cardiovascular: Regular rate Lungs: Clear bilaterally Abdomen: Soft Extremities: Dry NE: The patient was alert and oriented.. Language was normal. Fund of knowledge was normal. Pupils were equal and reactive to light. There was no afferent pupillary defect. Visual valdez were normal. Funduscopic examination was limited. Extra-ocular movements were full. Ptosis was absent. There was no nystagmus. Facial sensation was normal. Face was symmetric with normal strength. Hearing was intact. Palate movements were normal. Neck strength was normal. There was normal tongue bulk and speed of movement. Tone was normal. Muscle bulk was normal. I did not see fasciculations or hand tremors. Arms and legs were strong. Vibration sensation was normal. Temperature and pinprick sensation was normal. Rapid alternating movements were normal. There was no dysmetria. There was no intention tremor. Gait was deferred due to bedrest. Arm and leg reflexes ROBERT Rahman NP Dec 16, 2018 14:04 GINI BROOKS 19, 2019 19:39
== END 2018-12-16 18:45 | disposition home or self-care (01) | DRG 897 ==
LOC: E/R 04:15 → 6WM 05:40
PROVIDERS: ADMIT Internal Medicine; ATTEND Internal Medicine
DX: F11.23 Opioid dependence with withdrawal (principal); F11.20 Opioid dependence, uncomplicated; R56.9 Unspecified convulsions; F17.200 Nicotine dependence, unspecified, uncomplicated; T40.0X Poisoning by, adverse effect of and underdosing of opium; Y92.89 Other specified places as the place of occurrence of the external cause
CPT/HCPCS: 36415; 70470; 70551; 71045; 80048; 80053; 80307; 81001; 81025; 83735; 84100; 84443; 84484; 85025; 87086; 93005; 95819; J7040; Q9967